=== PATIENT | male | born 1990 | race African-American/Black ===

== ENCOUNTER 2016-10-08 18:22 | Emergency (ER) | payer OTHER ==
[~2016-10-08] VITALS: Ht 180.3 cm; Wt 68.0 kg
[2016-10-08] MEDS ORDERED: NORFLEX100 MG PO (19:51)
[2016-10-08 20:06] VITALS: BP 103/67
== END 2016-10-08 20:08 | disposition home or self-care (01) ==
LOC: ER 18:22
DX: S29.012A Strain of muscle and tendon of back wall of thorax, initial encounter (principal); S09.90XA Unspecified injury of head, initial encounter; F17.210 Nicotine dependence, cigarettes, uncomplicated; F10.99 Alcohol use, unspecified with unspecified alcohol-induced disorder; W01.0XXA Fall on same level from slipping, tripping and stumbling without subsequent striking against object, initial encounter; Y93.89 Activity, other specified; Y92.89 Other specified places as the place of occurrence of the external cause; Y99.8 Other external cause status